=== PATIENT | male | born 1965 | race Caucasian/White ===

== ENCOUNTER → 2021-10-06 10:07 | Outpatient (CLI) | payer OTHER, SELFPAY ==
--- NOTE | ~2021-10-06 | MR_ITS ---
EXAMINATION: MR knee RT wo con DATE: 10/06/2021 10:39 INDICATION: Right knee pain TECHNIQUE: Magnetic resonance imaging (MRI) of the right knee was performed without intravenous contr ast. Sequences included coronal PD-weighted FSE, coronal PD-weighted FS FSE, sagittal T2-weighted FS E, sagittal PD-weighted FS FSE and axial PD weighted fat saturated FSE. COMPARISON: None. FINDINGS: Medial compartment: Radial tear near the posterior root of the medial meniscus with medial extrusion of the meniscal body . Partial-thickness chondral ulceration along the anterior weightbearing medial femoral condyle with chondral surface irregularity, scattered fissuring and underlying subarticular edema-like marrow sign al change. Lateral compartment: Lateral meniscus is normal. Small region of mild partial-thickness chondral fissuring without degener ative subchondral changes along the posterior aspect of the lateral tibial plateau. Patellofemoral compartment: Deep chondral ulceration and fissuring with underlying cortical irregularity and mild edema and cystl renee changes at the inferior aspect of both the medial and lateral trochlea as well as at the patellar apical ridge and inferomedial aspect of the lateral patellar facet. This includes a delaminating cho ndral tears resulting in small nondisplaced chondral flaps on either side of the cephalad aspect of t he patellar apical ridge Ligaments and tendons: Anterior and posterior cruciate ligaments are normal. The medial collateral ligament and fibular gucci ateral ligament complex are normal. Mild tendinopathy/enthesopathy at the osseous attachment of the p atellar and distal quadriceps tendons. The visualized medial and lateral hamstring tendons as well as the iliotibial band are normal. Fluid: Small right knee joint effusion. No loose osteochondral bodies identified. Osseous/other: Normal marrow signal aside from the previous noted degenerative subchondral changes. No fracture or a bnormal marrow replacing process. IMPRESSION: 1. Radial tear at the posterior root of the medial meniscus. 2. Mild tricompartmental osteoarthritis with regions of high-grade chondromalacia at the patella, tro chlea and anterior weightbearing medial femoral condyle. Reviewed, dictated and finalized at location A. IMPRESSION: 1. Radial tear at the posterior root of the medial meniscus. 2. Mild tricompartmental osteoarthritis with regions of high-grade chondromalac ia at the patella, trochlea and anterior weightbearing medial femoral condyle.
== END ==
PROVIDERS: PCP Hospitalist; Visit Provider Orthopaedic Surgery
DX: M17.11 Unilateral primary osteoarthritis, right knee (principal); S83.241A Other tear of medial meniscus, current injury, right knee, initial encounter; M22.41 Chondromalacia patellae, right knee; M25.461 Effusion, right knee
CPT/HCPCS: 73721